=== PATIENT | male | born 1965 | race Caucasian/White ===

== ENCOUNTER 2022-12-08 15:14 | Outpatient (CLI) | payer BC, SELFPAY ==
--- NOTE | 2022-12-08 15:10 | DI.RAD_ITS ---
Exam(s) XR KNEE LT 3V AP,LAT,DAVID EXAM: XR KNEE LT 3V AP,LAT,DAVID CLINICAL HISTORY: left knee pain. TECHNIQUE: 2D digital imaging was performed of the left knee. Three images were obtained. ThreeAP, lateral and PA tunnel views were obtained. COMPARISON: No exams were available for comparison FINDINGS: BONES: No acute fracture is present. No bony destructive lesion is seen. There is a lucent defect in the articular surface of the medial femoral condyle. JOINTS: The knee is normally aligned. No joint effusion is seen. There is narrowing and periarticular spurring in the medial femoral tibial joint space. SOFT TISSUE: Normal. IMPRESSION: 1. Osteochondral defect in the medial femoral condyle. 2. Osteoarthritis of the left knee. DATA REPOSITORY: RADIATION DOSE DELIVERED:
--- NOTE | 2022-12-08 15:12 | DI.RAD_ITS ---
Exam(s) XR KNEE RT 3V AP,LAT,DAVID EXAM: XR KNEE RT 3V AP,LAT,DAVID CLINICAL HISTORY: right knee pain. TECHNIQUE: 2D digital imaging was performed of the right knee. Four views obtained. AP, lateral and PA tunnel views were obtained. COMPARISON: CR XR KNEE LT 3V AP,LAT,DAVID from 12/08/2022 FINDINGS: BONES: No acute fracture is present. No bony destructive lesion is seen. JOINTS: There is mild narrowing of the medial femoral tibial joint space. No joint effusion is seen. Chondrocalcinosis in the medial femoral tibial joint. SOFT TISSUE: Normal. IMPRESSION: Mild degenerative changes of the right knee. DATA REPOSITORY: RADIATION DOSE DELIVERED:
== END 2022-12-08 15:15 | disposition home or self-care (01) ==
LOC: DIORS 15:15
PROVIDERS: PCP Neuromusculoskeletal Medicine & OMM; Referring Provider Neuromusculoskeletal Medicine & OMM; Visit Provider Student in an Organized Health Care Education/Training Program
DX: M25.561 Pain in right knee (principal); M25.562 Pain in left knee; M17.0 Bilateral primary osteoarthritis of knee; M21.852 Other specified acquired deformities of left thigh
CPT/HCPCS: 73562

== ENCOUNTER → 2023-07-21 01:00 | Outpatient (CLI) | payer BC, SELFPAY ==
--- NOTE | 2023-07-21 07:00 | DI.MRI_ITS ---
Exam(s) MR LOWER JOINT LT WO EXAM: MR LOWER JOINT LT WO CLINICAL HISTORY: SURGICAL PLANNING FOR PARTIAL KNEE,djd lt knee, chondrocalcinosis bilat. TECHNIQUE: Multiplanar multisequence MRI was performed. COMPARISON: CR XR KNEE LT 3V AP,LAT,DAVID from 12/08/2022 CR XR KNEE RT 3V AP,LAT,DAVID from 12/08/2022 FINDINGS: BONES: Osteochondral defect of the medial femoral condyle. Flattening of the femoral condylar. Subj acent large subchondral cysts. Edema in the medial tibial plateau. JOINTS: A small joint effusion is present. Articular cartilage: Patellofemoral joint: Focal linear defect at the apex without involvement of un derlying bone. Medial femoral tibial joint: Denuding of the cartilage over the medial femoral condyle. Severe cart ilage thinning over the medial tibial plateau. Lateral femoral tibial joint: Articular cartilage is unremarkable. TENDONS: Extensor mechanism: Unremarkable. Medial retinaculum: Unremarkable. Lateral retinaculum: Unremarkable. Popliteus: Unremarkable. MUSCLES: Unremarkable. MENISCI: The medial meniscus shows severe degenerative changes, with peripheral displacement and bertha phous intrasubstance signal.. The lateral meniscus is unremarkable. There is a tiny cyst anterior t o the anterior horn of the lateral meniscus. SOFT TISSUES: Mild anterior edema. LIGAMENTS: Anterior Cruciate: Unremarkable. Posterior Cruciate: Unremarkable. Medial Collateral:Unremarkable. Lateral Collateral: Unremarkable. IMPRESSION: Large osteochondral defect of the medial femoral condyle with large subjacent cyst. Severe degenerat cole changes of the medial femoral tibial joint and medial meniscus. Small linear focus of high signal in the cartilage at the patellar apex. DATA REPOSITORY:
== END ==
PROVIDERS: PCP Neuromusculoskeletal Medicine & OMM; Visit Provider Student in an Organized Health Care Education/Training Program
DX: M11.261 Other chondrocalcinosis, right knee (principal); M11.262 Other chondrocalcinosis, left knee
CPT/HCPCS: 73721

== ENCOUNTER → 2023-10-06 11:22 | Outpatient (CLI) | payer BC, SELFPAY ==
--- NOTE | 2023-10-06 10:45 | DI.MRI_ITS ---
Exam(s) MR LOWER JOINT RT WO EXAM: MR LOWER JOINT RT WO CLINICAL HISTORY: R KNEE PAIN M23.91 DERANGEMENT RIGHT KNEE TECHNIQUE: Multiplanar multisequence MRI of the knee was performed. COMPARISON: CR,DX XR KNEE COMPLETE MIN 4V LT from 12/15/2018 MR MR KNEE LT WO CONTRAST from 12/28/2018 CR XR KNEE LT 3V AP,LAT,DAVID from 12/08/2022 CR XR KNEE RT 3V AP,LAT,DAVID from 12/08/2022 MR MR LOWER JOINT LT WO from 07/21/2023 FINDINGS: EFFUSION: A small joint effusion. No Mauricio cyst in the popliteal fossa. MARROW:There is no evidence of fracture, bone contusion, nor osteochondral defects.. There are no si gnificant osseous lesions. PATELLOFEMORAL COMPARTMENT: The quadriceps tendon is intact. The patellar ligament exhibits mild inc reased signal in its superior aspect but no significant tear. No abnormal signal in the inferior jaymie e the patella. There is mild subcutaneous edema anterior patella. There is mild uniform thinning of the retropatellar cartilage. No evidence of fissure nor significan t chondral defect. No osteochondral defect at this level.There is no intraosseous signal to suggest recent patellar dislocation. There are no patellar retinacular tears. CRUCIATE LIGAMENTS: The anterior cruciate ligament is intact.The posterior cruciate ligament is intac t. MEDIAL COMPARTMENT/MEDIAL MENISCUS: There is combination oblique and horizontal tear of the mid-later al aspect of the posterior horn medial meniscus. There is mild outward and caudal extrusion of torn meniscal material. No flipped fragments. There is a focus of increased signal in the posterior horn at the level just medial to the root of but this signal abnormality does not violate an articular galvez rface and tear signal does not extend medial to this in the posterior horn, with the meniscal root ap pearing intact. The anterior horn appears intact. There is mild relatively uniform articular cartilage thinning over the main weight-bearing surface of the medial condyle. No osteochondral defects evident. No subarticular bone edema in the medial con dyle and tibial plateau. No marginal osteophytes. MEDIAL COLLATERAL LIGAMENT: Mild increased signal at meniscocapsular junction. No high-grade tear of this structure. LATERAL COMPARTMENT/LATERAL MENISCUS: There is no evidence of lateral meniscal tear.Mild thinning of the articular cartilage over the main weight-bearing surface of the lateral femoral condyle. No larg e chondral defects nor osteochondral defects. No subarticular edema in the lateral condyle nor in th e subjacent lateral tibial plateau. No osteophytes. ILIOTIBIAL BAND: Intact LATERAL COLLATERAL LIGAMENT COMPLEX: The fibular collateral ligament is intact. The biceps femoris t endon is intact.Popliteus muscle and tendon are intact. IMPRESSION: 1. The main finding here is significant tear of the outer half of the posterior horn of the medial me niscus, as described above. There are mild cartilage degenerative changes in the medial compartment but no evidence of osteochondral defect, as was evident in the opposite knee (see prior opposite knee MRI report). No other meniscal tears evident. 2. No significant cruciate nor collateral ligament tears. 3. Small joint effusion. No Mauricio cyst. DATA REPOSITORY:
== END ==
PROVIDERS: PCP Neuromusculoskeletal Medicine & OMM; Visit Provider Student in an Organized Health Care Education/Training Program
DX: M25.561 Pain in right knee (principal); M23.8X1 Other internal derangements of right knee; M25.461 Effusion, right knee; S83.241A Other tear of medial meniscus, current injury, right knee, initial encounter
CPT/HCPCS: 73721

== ENCOUNTER 2023-10-14 13:05 | Outpatient (CLI) | payer BC, SELFPAY ==
--- NOTE | 2023-10-14 09:15 | DI.RAD_ITS ---
Exam(s) XR STANDING ALIGNMENT EXAM: XR STANDING ALIGNMENT CLINICAL HISTORY: PRE OP. TECHNIQUE: 2D digital imaging was performed. Standing AP views were performed from the pelvis throu gh the ankles. COMPARISON: CR XR KNEE LT 3V AP,LAT,DAVID from 12/08/2022 CR XR KNEE RT 3V AP,LAT,DAVID from 12/08/2022 FINDINGS: BONES: No acute fracture is present. No bony destructive lesion is seen. Leg length discrepancy: No significant overall leg length discrepancy. JOINTS: Knees: Right knee shows mild degenerative changes and chondrocalcinosis. Left knee shows 0 c hondral defect of the medial femoral condyle and moderate to severe joint space narrowing. The ankle joints are unremarkable. Hips: Mild left hip joint space narrowing. Moderate to severe narrowing of the right hip joint space SOFT TISSUE: Normal. IMPRESSION: Osteochondral defect and degenerative changes of the left knee.. No significant leg length discrepancy. DATA REPOSITORY: RADIATION DOSE DELIVERED:
== END 2023-10-14 13:06 | disposition home or self-care (01) ==
LOC: DIORS 13:06
PROVIDERS: PCP Neuromusculoskeletal Medicine & OMM; Visit Provider Student in an Organized Health Care Education/Training Program
DX: M17.12 Unilateral primary osteoarthritis, left knee (principal); M23.91 Unspecified internal derangement of right knee
CPT/HCPCS: 77073

== ENCOUNTER 2023-10-29 06:05 | Day surgery (SDC) | payer BC, SELFPAY ==
[2023-10-29] VITALS (11 sets, daily range): BP systolic 99–160; BP diastolic 65–101; PULSE 58–72; RESP 12–19; TEMP 36.2–36.7; O2SAT 94–99; BMI 34.2
[2023-10-29] MEDS: Celecoxib 200 MG CAP 400 MG PO (06:45)
[2023-10-29] MEDS: Acetaminophen 500 MG TAB 1000 MG PO ×2 (06:45→12:49)
[2023-10-29] MEDS: Lactated Ringers 1,000 ML 30 ML IV (06:46)
--- NOTE | 2023-10-29 07:06 | W.ANESPRE ---
General Info Date of Service Date Performed: 10/29/23 Height: 5 ft 6 in Weight: 96.162 kg Body Mass Index (BMI): 34.2 Surgical Procedure: Operation Date: 10/29/23 08:00 Proposed Procedure Side Surgeon p Medial Unicondylar Knee Arthroplasty Left Mick Ray MD Meds Allergies and Home Medications Allergies Allergy/AdvReac Type Severity Reaction Status Date / Time No Known Allergies Allergy Verified 10/29/23 06:54 Home Medication Medication Instructions Recorded ibuprofen 200 mg tablet 800 mg PO DAILY PRN 06/10/22 sildenafil 100 mg tablet (Viagra) 100 mg PO DAILY PRN 06/10/22 losartan 25 mg tablet 25 mg PO HS 10/14/23 Current Visit Medications: Current Medications Generic Name Dose Route Start Last Admin Trade Name Freq PRN Reason Stop Dose Admin Acetaminophen 1,000 mg 10/29/23 06:00 10/29/23 06:45 Acetaminophen 500 Mg Tab PO 10/29/23 16:00 1,000 mg PREOP ALEX Administration Celecoxib 400 mg 10/29/23 06:00 10/29/23 06:45 Celecoxib 200 Mg Cap PO 10/29/23 16:00 400 mg PREOP ALEX Administration Gabapentin 300 mg 10/29/23 06:00 Gabapentin 300 Mg Cap PO 10/29/23 16:00 PREOP ALEX Ringer's Solution 1,000 mls @ 30 mls/hr 10/29/23 06:00 10/29/23 06:46 IV 11/27/23 23:59 30 mls/hr INFUSION ALEX Administration Cefazolin Sodium/Dextrose 2 gm in 50 mls @ 100 mls/hr 10/29/23 06:00 Ancef Duplex IVPB 10/29/23 16:00 PREOP ALEX Tranexamic Acid 1,000 mg/ 60 mls @ 360 mls/hr 10/29/23 06:00 Sodium Chloride IVPB 10/29/23 16:00 PREOP ALEX IV Miscellaneous Supplies 1 each 10/29/23 06:00 Iv Access IV 11/27/23 23:59 DIRECTED ALEX Sodium Chloride 0 ml 10/29/23 06:00 Normal Saline Flush 10 Ml Syr IV 11/27/23 23:59 PRN PRN Sodium Chloride 0 ml 10/29/23 06:00 Normal Saline 10 Ml Vial IJ 11/27/23 23:59 DIRECTED PRN Sterile Water 0 ml 10/29/23 06:00 Water,Injection,Sterile 10 Ml Vial IJ 11/27/23 23:59 DIRECTED PRN PFSH Active Problems Active Problems: Problem Status Onset Code Internal derangement of right knee M23.91 Arthritis of knee, left M17.12 Left knee DJD M17.12 Degenerative joint disease of right knee M17.11 Chondrocalcinosis of both knees M11.261, M11.262 Surgical History Surgical History Status post arthroscopy of left knee Tobacco Smoking/Tobacco Use Status: Current-Occasional Tobacco Type: cigarettes Alcohol Alcohol Intake: current Alcohol intake frequency: 3 or more drinks per day Alcohol type: beer Substance Use Substance use: Never Substance use type: does not use Vital Signs and Lab Results Vital Signs Most Recent Vital Signs in EMR: Most Recent Vital Signs Temp Pulse Resp BP Pulse Ox 36.7 C 67 16 137/79 96 10/29/23 06:55 10/29/23 06:55 10/29/23 06:55 10/29/23 06:55 10/29/23 06:55 Lab Results Blood Type / Crossmatch: No Data to Display Complete Blood Count: No Data to Display Complete Metabolic Panel: No Data to Display Liver Function Panel: No Data to Display Coagulation Panel: No Data to Display Cardiac Panel: No Data to Display Arterial Blood Gas: No Data to Display Venous Blood Gas: No Data to Display Pancreas Panel: No Data to Display Thyroid Panel: No Data to Display Infectious Disease: No Data to Display Blood Cultures: No Data to Display Toxicology Panel: No Data to Display Anesthesia Assessment and Plan Anesthesia History Personal History: No History of Anesthesia Complications Family History: No Family History of Anesthesia Complications Exercise Tolerance Exercise Tolerance: Metabolic Equivalents>4 Pertinent Negatives Pertinent Negatives: No Symptoms of GERD, No Major Cardiovascular Symptoms or Complaints and No Major Pulmonary Symptoms or Complaints Cardiac & Pulmonary Exam Cardiac Exam: Normal S1/S2 Heart Sounds Pulmonary Exam: Clear Bilateral Breath Sounds Implantable Cardiac Device Does patient have a Pacemaker or an ICD?: No Airway Exam Known Difficult Airway: No Mallampati Class: 2 Mouth Opening: Normal (> 3cm) Thyromental Distance: Greater than 3 cm Neck Range of Motion: Full ROM Neck Circumference: Normal Teeth Condition: Normal Dentition ASA Classification ASA Score: ASA 2 Emergency Case?: No NPO Status NPO Status: NPO Clears >2 hours, Solids >8 hours Anesthesia Plan Resuscitation Status: Full Code Anesthesia Technique: General Anesthesia Airway Planned: Endotracheal Tube Pain Management: Surgeon and patient request nerve block Monitors Used: Standard Monitors
--- NOTE | 2023-10-29 07:10 | W.PM.DSUDISC ---
Date of service: 10/29/23 Time of Service: 12:00 Discharge Plan Disposition Patient Disposition: Home Condition: Stable Discharge Details Attending Provider: Mick Ray Primary Care Provider: Tommy Porter Home Meds and New Rx's Prescriptions: New aspirin 81 mg tablet,delayed release (DR/EC) 81 mg PO BID 30 Days Qty: 60 0RF naproxen 250 mg tablet 250 - 500 mg PO BID PRNQty: 40 0RF Rx Instructions: take with a meal Continued sildenafil [Viagra] 100 mg tablet 100 mg PO DAILY PRN Rx Instructions: administer 30 minutes to 4 hours before activity losartan 25 mg tablet 25 mg PO HS Discontinued ibuprofen 200 mg tablet 800 mg PO DAILY PRN Discharge Instructions Additional Instructions: Surgery: Left medial unicondylar knee replacement Activity: Weightbearing as tolerated. Recommend elevation to minimize swelling and discomfort. Walk as comfort allows. May use crutches as needed for a few weeks. It is important to restore full knee extension as soon as possible. Gently increase knee flexion over the next few weeks. Do not rest with pillows behind knee to prevent knee from getting stuck bent. Encourage ankle pumps and wiggling toes to increase circulation. A physical therapy prescription will be sent electronically to begin in 2-3 weeks. Prescriptions: Aspirin 81 mg take 1 twice a day to prevent a blood clot 30 days Naproxen 250 mg take 1-2 every 12 hours with a meal as needed for moderate to severe pain Plan to avoid narcotics given severe sleep apnea You may use [id number] Tylenol (acetaminophen) as needed for mild pain. Also, recommend Colace (docusate) as a stool softener as surgery and pain medicine cause constipation. You may try sgyz-feq-dihgohw diphenhydramine (Benadryl) 25-50 mg nightly as a sleep aid Dressings: Leave Band-Aid in place until follow-up. Keep clean and dry at all times. May remove Corey wrap tomorrow. May re-wrap with Corey wrap to help control swelling as needed. Follow-up: 10-[address] Ray You may take off the leg compression Corey wrap and stockings tomorrow at home. You may also leave them on a few days longer if you have a history of leg swelling or edema. Let us know right away if you develop any redness, drainage, fevers, chest pain, or trouble breathing. Do not drink alcohol or drive for at least 24 hours after anesthesia. Please call the office during business hours with any questions or concerns. Discharge Orders Discharge Orders: Discharge Order (Routine); Ordered 10/29/23 Ordered By: Mick Ray DS: Diagnosis Discharge Diagnosis (1) Arthritis of knee, left: Status: Acute
--- NOTE | 2023-10-29 07:13 | ROE_ITS ---
Date of service: 10/29/23 Time of Service: 07:30 Operative Note Operative Note DATE OF PROCEDURE: 10/29/23 PRE-OP DIAGNOSIS: Left knee medial compartmental arthritis POST-OP DIAGNOSIS: same PROCEDURE: Left knee medial unicompartmental arthroplasty, CPT # 58715 The bankruptcy assistant was medically required as this procedure involves retraction, protection of neurovascular structures, and manipulation of multiple instruments and implants at the same time, which cannot be done without a skilled bankruptcy assistant. SURGEON: Mick Ray CALL CENTER SUPPORT REPRESENTATIVE: Dimitris Rojas ANESTHESIA TYPE: Local By Surgeon, General LMA/ETT and Primary Nerve Block Refer to Anesthesia Record ESTIMATED BLOOD LOSS: 75 TOURNIQUET TIME: 0 COMPLICATIONS: None Patient was transported to: PACU Patient's condition: stable Implants: De[employer] Sigma HP partial knee size 4 metal-backed tibial tray, 8 mm tibial insert fixed bearing, size 4 femoral component Indications: Please see complete medical record for details. Findings: Isolated medial compartment arthritis Procedure Description: The patient was taken to the operating room and transferred to the operating room table. General anesthesia was induced. All bony prominences were well- padded. Preoperative antibiotics and 1 g TXA were administered. A tourniquet was placed loosely over padding high on the patient's thigh. The knee and lower extremity were prepped and draped in the usual sterile fashion. The correct patient, procedure, and side of the procedure were all verified prior to incision. A slightly medial of midline longitudinal approach was used to the knee extending from the superior pole the patella to the distal aspect of the tibial tubercle. The quadriceps tendon, patella borders, and patellar tendon were exposed. A full-thickness arthrotomy was performed starting splitting the quadriceps tendon and leaving a sleeve of tissue on the medial aspect of the patella and taking care to progress along the medial margin the patellar tendon. The MCL was elevated off the proximal medial tibia. The tibial alignment jig was set in place on the anterior medial aspect of the tibia and carefully adjusted to achieve proper alignment in the coronal and sagittal planes. Reciprocating saw was used to create the vertical cut at the medial aspect of the medial tibial eminence taking care to protect the ACL ligament footprint. The transverse cut was then done using the microsagittal saw through the jig taking care to retract and protect the MCL. The saw was able to cut the most posterior aspect of the tibia given hard cortical rim of b one, this was completed with osteotome and slightly chipping the posterior rim. The 7 mm spacer block was inserted and found to be slightly tight in extension and even more tight in flexion. The jig was replaced, translated 2mm distally using the screw holes, and the transverse cut done again. The bone piece and cut were inspected and found to be appropriate for patient anatomy. A box rasp was used to clean up the cut especially the L component. The 7 mm spacer block was inserted and found to have good equal stability in full extension and 90 degrees of flexion with approximately 2 mm of joint space opening in 20-30 degrees of flexion. With the knee in extension, the tibial trial spacer block was used to tammy the rotational alignment and anterior extent of the femoral component. The spacer block was removed and the tibia was sized with the depth gauge. The distal femoral cutting block was inserted taking care to orient it appropriately. The cut was done using the saw through the guide. The osteochondral deformity distal femur was between the distal and posterior margins, there was a large posterior femoral condyle. The lesion was centered about the chamfer cut area. The posterior cutting block was applied to the distal femur taking care to ensure it was flush with the resected distal femur surface and appropriately rotated to match alignment of the tibia through f lexion and extension. The distal cut was increased by 1 mm as they Seem slightly tight compared to extension. This cut was done, guide removed, and the femur was sized with the femoral sizing blocks. The appropriate sized cutting jig was selected. Care was taken to ensure the block was flush with the resected distal and posterior bone surfaces. A curved gouge was used to cut the profile of the proximal tip of the femoral prosthesis, tammy the extent of the anterior chamfer cut, and prevent trochlear cartilage delamination. The the anterior cut was done using the osteotomes, the drill was used to drill the 2 peg holes, and the posterior chamfer cut was done through the jig . The cutting block and bone cuts were removed. The chamfer cut was about 1 mm short of the maximum depth of the bone lesion. The underlying bone was smooth and firm. It was slightly abraded with the tip of a threaded pin. The medial meniscus remnant was removed. The femoral component trial was placed on the distal femur and the 7-8 mm spacer blocks showed appropriate balancing in flexion, extension, and again 2 mm of medial joint space opening in 20-30 degrees of flexion. Tibial template was inserted and the size confirmed to be appropriate. The keel was used by hand to remove bone from the slot and the tibial peg drill was used in the peg hole. The pulse lavage was used to clean the bone surfaces. SmartSet medium viscosity cement was prepared. At the appropriate time during the early working phase, the cement was applied to the backside of the tibial and femoral components. Then, cement was carefully placed and pressurized into the proximal tibia taking care to only have minimal cement posteriorly. The tibial component was inserted at an angle and then impacted directing pressure from posterior to anterior to keep the flow of cement from posterior to anterior. Cement was then applied to the distal femur and the femoral component impacted. Excess cement was removed. The knee was brought into full extension and this position with axial load was maintained until the cement was completely hardened at 20 minutes A combination R.E.C.K. (123 mg Ropivacaine, 0.25 mg Epinephrine, 0.04 mg Clonidine, and 15 mg Ketorolac) 50 ml injection was widely infiltrated about the knee. The wound was copiously irrigated with the pulse lavage and Irrisept. Tibial tray newspaper inserter was removed, the 8 mm trial was selected due to young age, high activity level and increased ability without preventing full range of motion. The final tibial insert was inserted and clicked into place. The knee was tested through range of motion found to be stable with nearly equal balancing from full extension to slight increased laxity in flexion past 90 degrees and a couple millimeters of medial joint space opening in 20-30 degrees of flexion. Appropriate hemostasis was achieved. The capsule was approximated using #1 Vicryl in a figure-of-8 interrupted fashion and then closed using Stratafix #1 PDS barbed suture in a running fashion. The superficial layers were irrigated. Subcutaneous tissue was closed using 2-0 Monocryl in a buried interrupted fashion. Skin was closed using 3-0 Monocryl in a buried subcuticular fashion. The skin incision was glued and then covered with a Mepilex Ag dressing. An Corey wrap was applied from the foot up to the thigh. The patient awoke from anesthesia without complication was transferred to the recovery room in stable condition.
[2023-10-29] MEDS: ceFAZolin 2 GM/50 ML BAG IVPB (07:55)
[2023-10-29] MEDS: EPINEPHrine 1 MG/ML AMP pres-free (08:23)
--- NOTE | 2023-10-29 08:23 | W.ANESNERVE ---
Nerve Block Single Injection Procedure Date and Time Date Performed: 10/29/23 Procedure Start: 07:14 Location Where Procedure Performed Procedure Location: Day Surgery Unit Reason Performed: Postoperative Analgesia Requesting Provider: Mick Ray Timeout Performed Timeout Performed: Yes Monitoring Used ECG, Blood Pressure, SpO2 and See EMR for corresponding vital signs Sterility Sterility: Hand Hygiene, Surgical Cap, Surgical Mask and Sterile Gloves Sedation Given During Procedure Sedation Given (Indicate Dose Given): Versed IV Dose:: 2mg Patient Mental Status Patient Mental Status: Sedate with meaningful communication Nerve Block 1st Nerve Block: Laterality: Left Block Type: Adductor Canal Ultrasound Image Saved?: Yes Needle / Catheter Used: 100mm SonoPlex II Local Anesthetic Bolus (Indicate Dose Given): Lidocaine used for local infiltration of skin, Injected in 3-5ml increments after negative blood aspiration, Bupivacaine 0.25% Dose:: 15mL and Exparel Dose:: 10mL Additives (Indicate Dose Given): None Ultrasound: Sterile probe cover and gel used Nerve Stimulator: Not Used Paresthesia: None Procedure Tolerated: No Complications and Patient tolerated well Procedure Outcome: Successful Performed By: Rosalba Regan
[2023-10-29] MEDS: Bupivacaine 0.25% Pres-Free 30 ML VIAL (08:24)
--- NOTE | 2023-10-29 11:00 | DI.RAD_ITS ---
Exam(s) XR KNEE LT 2V AP,LAT EXAM: XR KNEE LT 2V AP,LAT CLINICAL HISTORY: Left knee arthritis. TECHNIQUE: 2D digital imaging was performed. Two images were obtained. AP and lateral views were ob tained. COMPARISON: CR XR KNEE LT 3V AP,LAT,DAVID from 12/08/2022 CR XR STANDING ALIGNMENT from 10/14/2023 FINDINGS: The patient is now status post left partial knee replacement. The orthopedic hardware appears in goo d position. Postsurgical changes are seen in the soft tissues. There is chondrocalcinosis in the la teral femoral tibial joint. The bones are intact and normally mineralized. IMPRESSION: Left partial knee replacement. DATA REPOSITORY: RADIATION DOSE DELIVERED:
[2023-10-29] MEDS: HYDROmorphone 2 MG/ML SYR IVP ×3 (11:53→12:13)
[2023-10-29] MEDS: Normal Saline 10 ML VIAL IJ (11:53)
[2023-10-29] MEDS: oxyCODONE 5 MG TAB PO (12:49)
--- NOTE | 2023-10-29 14:10 | PT.INIE ---
PT Notes Physical Therapy Day Surgery Initial Evaluation Date: 10/29/2023 Referring Doctor: Mick Ray MD PT Orders: PT CONSULT: S/P Ortho Surgery Precautions: WBAT L LE-post op knee exercises (extension, quad sets). Limit L knee flexion to 90 degrees until follow up ortho appointment. Patient Profile/Admitting Diagnosis: Yahaira is a 58-year-old male with left knee medial compartmental arthritis and is status post left medial knee unicompartmental arthroplasty on postoperative day 0. PMHX: All Active Problems (Updated 09/30/23 @ 08:38 by Mick Ray MD) Internal derangement of right knee (Acute) Arthritis of knee, left (Acute) Left knee DJD (Acute) Depo-Medrol injection: 12/08/22 Degenerative joint disease of right knee (Acute) Depo-Medrol injection: 12/08/2022 PCP 40 mg Kenalog - 05/15/22 Chondrocalcinosis of both knees (Acute) Surgical History (Updated 12/08/22 @ 18:10 by Yudelka Dumont) Status post arthroscopy of left knee Social History/Home Situation: Lives with Darya. 4 steps to enter with 1 rail but will have support on the other side from wifeif needed. Independent with all aspects of ADLs prior to surgery. Works as a contractor. Equipment Owned/DME: None Subjective: Minimal pain in the L knee at rest, subsided with walking. Complained of woosiness that worsened after completing steps. BP increased to 160/88 mmHg. Nurse Laura aware. Objective: General Observation: Resting in bed. CONNIE wraps to L LE. Mepilex Ag over surgicl incision. Mental Status: A and O x 4 Pain: As above ROM: Right Lower Extremity: Hip flexion WFL. Hip abduction WFL. Knee flexion WFL. Ankle dorsiflexion WFL. Ankle plantarflexion WFL. Left Lower Extremity: Hip flexion WFL. Hip abduction WFL. Knee flexion 0-90 degrees. Ankle dorsiflexion WFL. Ankle plantarflexion WFL. Strength: Right Lower Extremity: Hip flexors 5/5. Hip abductors 5/5. Knee flexors 5/5. Knee extensors 5/5. Ankle dorsiflexors 5/5. Ankle plantarflexors 5/5. Left Lower Extremity:Hip flexors 4/5. Hip abductors 4/5. Knee flexors 3-/5. Knee extensors 4-/5. Ankle dorsiflexors 5/5. Ankle plantarflexors 5/5. Sensation: Intact as to pain and light pressure in BLE Bed Mobility/Transfers: Minimal cueing provided for use of B hands as needed for support, movement sequence, Ad management, and and posture to reduce fall risk and minimize pain report Supine to sit stand by assist Sit to stand contact guard assist Stand to sit stand by assist Bed to chair stand by assist Gait: Facilitated safe and correct performance of level surface ambulation covering a distance of 150 feet using front wheeled walker requiring only standby assist with minimal verbal cueing provided for AD management, posture, and safe for limb advancement to reduce fall risk and minimize pain report. Stairs: Guided patient with safe and correct performance of 3 x 4 inch steps and 2 x 6 inch steps while holding onto bilateral rails with step to gait pattern requiring only standby assist and minimal verbal cueing for correct movement sequence, posture, and hand placement to minimize fall risk and reduce pain. Balance: Static Sitting: Normal Dynamic Sitting: Normal Static Standing: Fair Dynamic Standing: Fair Special Tests: Mobility Limitations Standardized Measure [facility] AM-PAC 6 clicks Basic Mobility Inpatient Short Form: Raw Score: 23 CMS Score: 11% deficit Informed Consent/Education: Patient instructed in purpose of PT consult. Packet containing post-op exercise protocol has been given to patient. Education and training on initial set of exercises that can be done at home have been completed with patient. Trained patient with correct performance of exercises below to maximize motor control, joint flexibility, soft tissue extensibility of the L knee musculature: Access Code: [email or web address] URL: [email or web address] Date: 10/29/2023 Prepared by: Kayla Malone Exercises - Supine Quad Set - 1 x daily - 7 x weekly - 1 sets - 10 reps - 5 hold - Supine Heel Slide - 1 x daily - 7 x weekly - 1 sets - 10 reps - 5 hold - Supine Ankle Pumps - 1 x daily - 7 x weekly - 1 sets - 10 reps - 5 hold - Small Range Straight Leg Raise - 1 x daily - 7 x weekly - 1 sets - 10 reps - 5 hold - Seated March - 1 x daily - 7 x weekly - 1 sets - 10 reps - 5 hold Assessment: Patient requires the use of a front wheeled walker for all mobility ADL performance to minimize pain report, maximize stability of walking, and reduce fall risk. Patient presents with clinical signs and symptoms consistent with current/admitting diagnoses that have resulted to mobility limitations, gait instability, generalized weakness, and impairment of motor control as demonstrated by the following impairment level findings: 1. Decreased strength to left knee major muscle groups 2. Impaired standing balance 3. Limitation of joint range of motion in left knee flexion (per movement precaution by MD) Impairments are contributing to the following functional limitations: 1. Inability to safely ambulate without assistive device 2. Increase completion time for mobility ADL performance 3. Increased fall risk Patient is assessed as a 36409 moderate complexity based on the following: History: 58-year-old male with impairment level findings, functional limitations, and past medical history as indicated above Examination: Demonstrable impairment in strength, balance, and mobility level with underlying impairments and functional limitations as documented above Presentation: Evolving Decision Makin moderate complexity. Goals: N/A. PT evaluation and 1-2 treatment sessions only for functional mobility training using recommended AD and for HEP instruction. Plan of Care/Treatment Plan: N/A. PT evaluation and 1-2 treatment session only for functional mobility training using recommended AD and for HEP instruction. DISCHARGE RECOMMENDATIONS: Home when medically cleared by orthopedic surgeon. Recommend outpatient PT services in order to optimize functional mobility outcomes and facilitate return to independent community ambulation without an assistive device. TREATMENT CODE/TIME: 18007 x 20 minutes for 1 unit, 99749 x 29 minutes for 2 units beginning at 13:15 PM. Thank you for the opportunity to participate in the care of this patient. Kayla Malone PT, DPT, CLT [facility] [place], [place]
--- NOTE | 2023-10-29 14:48 | W.ANESPOSTOP ---
Postoperative Evaluation Date, Time and Location Date Performed: 10/29/23 Time Performed: 14:48 Patient Location: Day Surgery Unit Vital Signs Most Recent Imported Vital Signs: Most Recent Vital Signs Temp Pulse Resp BP Pulse Ox 36.2 C L 72 16 160/88 H 97 10/29/23 12:53 10/29/23 13:59 10/29/23 13:59 10/29/23 13:59 10/29/23 13:59 Pain Score Most Recent Pain Score: Most Recent Pain Score Pain Level 5 10/29/23 12:53 Assessment Mental Status: Awake (Alert & Oriented to Patient Baseline) Airway and Respiratory Function: Patent airway with normal (patient baseline) respiratory exam Cardiovascular Function: Hemodynamically Stable Hydration Status: Adequately Hydrated Nausea & Vomiting: No Nausea or Vomiting Pain: Pt. Denies Any Pain Peripheral Nerve Block: Regional nerve block not resolved at time of post operative discharge
== END 2023-10-29 14:50 | disposition home or self-care (01) ==
PROVIDERS: PCP Neuromusculoskeletal Medicine & OMM; Visit Provider Student in an Organized Health Care Education/Training Program
PROC: (CPT 27446; principal; 2023-10-29 07:30)
DX: M17.12 Unilateral primary osteoarthritis, left knee (principal)
CPT/HCPCS: 27446; 76942; 97162; 97530; 73560; J0171; J0690; J1100; J1170; J2001; J2250; J2371; J2405; J2704

== ENCOUNTER 2023-11-11 10:43 | Outpatient (CLI) | payer BC, SELFPAY ==
--- NOTE | 2023-11-11 08:00 | DI.RAD_ITS ---
Exam(s) XR KNEE LT 2V AP,LAT EXAM: XR KNEE LT 2V AP,LAT INDICATION: 1st post op s/p Uni knee. COMPARISON: CR XR KNEE LT 2V AP,LAT from 10/29/2023 TECHNIQUE: 2D digital imaging was performed. Two views. FINDINGS: There has been no change in the alignment of the medial femoral tibial joint space prosthesis given d ifferences in projection. Some anterior soft tissue swelling remains present. DATA REPOSITORY: RADIATION DOSE DELIVERED:
== END 2023-11-11 10:44 | disposition home or self-care (01) ==
PROVIDERS: PCP Neuromusculoskeletal Medicine & OMM; Visit Provider Student in an Organized Health Care Education/Training Program
DX: Z96.652 Presence of left artificial knee joint (principal); Z47.1 Aftercare following joint replacement surgery
CPT/HCPCS: 73560

== ENCOUNTER 2023-12-09 11:53 | Outpatient (CLI) | payer BC, SELFPAY ==
--- NOTE | 2023-12-09 08:15 | DI.RAD_ITS ---
Exam(s) XR KNEE LT 2V AP,LAT EXAM: XR KNEE LT 2V AP,LAT CLINICAL HISTORY: F/U LEFT UKA. TECHNIQUE: 2D digital imaging was performed. Two images were obtained. AP and lateral views were ob tained. COMPARISON: CR XR KNEE LT 2V AP,LAT from 10/29/2023 CR XR KNEE LT 2V AP,LAT from 11/11/2023 FINDINGS: BONES: There are stable post operative changes of a there again seen findings of a partial left knee replacement present. No fracture or dislocation. JOINTS: The orthopedic hardware is in good position. No evidence of hardware loosening. There is a small joint effusion. SOFT TISSUE: There is soft tissue swelling anteriorly. IMPRESSION: 1. Postsurgical changes of partial left knee replacement. 2. Small joint effusion and soft tissue swelling anteriorly. DATA REPOSITORY: RADIATION DOSE DELIVERED:
== END 2023-12-09 11:54 | disposition home or self-care (01) ==
LOC: DIORS 11:53
PROVIDERS: PCP Neuromusculoskeletal Medicine & OMM; Visit Provider Student in an Organized Health Care Education/Training Program
DX: Z96.652 Presence of left artificial knee joint (principal); M25.462 Effusion, left knee
CPT/HCPCS: 73560

== ENCOUNTER 2024-01-05 11:32 | Outpatient (CLI) | payer BC, SELFPAY ==
--- NOTE | 2024-01-05 08:00 | DI.RAD_ITS ---
Exam(s) XR SHOULDER RT COMPLETE 2+V EXAM: XR SHOULDER RT COMPLETE 2+V CLINICAL HISTORY: RIGHT SHOULDER PAIN. TECHNIQUE: 2D digital imaging was performed of the right shoulder. Two images were obtained. Axill julianna and Grashey views were obtained. COMPARISON: No exams were available for comparison FINDINGS: BONES: No acute fracture is present. No bony destructive lesion is seen. JOINTS: No dislocation present. There are marked degenerative changes seen at both the glenohumeral a nd acromioclavicular joints characterized by joint space and osteophytes. SOFT TISSUE: Normal. IMPRESSION: Marked degenerative changes of the right shoulder. DATA REPOSITORY: RADIATION DOSE DELIVERED:
== END 2024-01-05 11:33 | disposition home or self-care (01) ==
LOC: DIORS 11:32
PROVIDERS: PCP Neuromusculoskeletal Medicine & OMM; Visit Provider Student in an Organized Health Care Education/Training Program
DX: M25.511 Pain in right shoulder (principal)
CPT/HCPCS: 73030

== ENCOUNTER → 2024-02-25 02:19 | Outpatient (CLI) | payer BC, SELFPAY ==
--- NOTE | 2024-02-25 15:52 | DI.RAD_ITS ---
Exam(s) RF JOINT INJ. FLUORO GUID RAD EXAM: RF JOINT INJ. FLUORO GUID RAD CLINICAL HISTORY: R SHOULDER PAIN,fluoro guided injection,arthritis rt gh joint,m19.011. The Patien t has had persistent right shoulder pain. Noninvasive measures have been tried. To serve as both di agnostic and therapeutic, an injection under fluoroscopy was recommended. The risks of the procedure were discussed with their Orthopedic provider and the patient elected to proceed. TECHNIQUE: 2D and realtime digital imaging was performed. CONTRAST MATERIAL: Water soluble contrast was utilized. COMPARISON: No exams were available for comparison FINDINGS: The Patient was greeted in the fluoroscopy room. The correct side was identified and the consent was reviewed with the patient and was signed. The patient was properly positioned on the fluoroscopy ta ble. The right shoulderwas then prepped with Chloraprep and draped. The right shoulder injection st arting point was identified by the bony landmarks and fluoroscopy. The skin and soft tissue in the t ract of the injection was anesthetized with 1% Lidocaine. A spinal needle was then inserted into the right shoulder joint at the level of the glenohumeral joint under fluoroscopic guidance. A small am ount of Omnipaque solution was injected to confirm intraarticular placement. Once confirmed, the gle nohumeral joint was injected with 5cc of a solution containing 0.5% Bupivaine and 80 mg of Depo-Medro l. A bandaid was placed on the injection site. The patient tolerated the procedure well and left e department in good condition. IMPRESSION: Successful right shoulder injection. RADIATION DOSE DELIVERED: Micheler=4.12 mGy
[2024-02-25] MEDS: Normal Saline - Diluent 50 ML VIAL 10 ML IJ (15:54)
[2024-02-25] MEDS: Omnipaque 300 MG/ML 10 ML BTL 5 ML IJ (15:54)
[2024-02-25] MEDS: Bupivacaine 0.5% Pres-Free 10 ML VIAL IJ (15:55)
[2024-02-25] MEDS: methylPREDNISolone ACETATE 80 MG/ML VIAL IM (15:56)
== END ==
PROVIDERS: PCP Neuromusculoskeletal Medicine & OMM; Visit Provider Student in an Organized Health Care Education/Training Program
DX: M19.011 Primary osteoarthritis, right shoulder (principal); M25.511 Pain in right shoulder
CPT/HCPCS: 20610; 77002; J0665; J1010

== ENCOUNTER 2024-04-20 14:50 | Outpatient (CLI) | payer BC, SELFPAY ==
--- NOTE | 2024-04-20 08:30 | DI.RAD_ITS ---
Exam(s) XR KNEE LT 2V AP,LAT EXAM: XR KNEE LT 2V AP,LAT CLINICAL HISTORY: F/U LEFT UKA. TECHNIQUE: 2D digital imaging was performed. COMPARISON: CR XR KNEE LT 2V AP,LAT from 12/09/2023 FINDINGS: Two views. There is stable position alignment of the components of the medial hemiarthroplasty. No fracture or loosening evident. No evidence of osteomyelitis. There is persistent soft tissue swelling anterior to the patella and patellar ligament. This was also evident on 12/09/2023 IMPRESSION: Stable satisfactory appearance of medial hemiarthroplasty. Persistent anterior soft tissue subcutaneous swelling. DATA REPOSITORY: RADIATION DOSE DELIVERED:
== END 2024-04-20 14:51 | disposition home or self-care (01) ==
LOC: DIORS 14:51
PROVIDERS: Visit Provider Student in an Organized Health Care Education/Training Program
DX: Z96.652 Presence of left artificial knee joint (principal); Z47.1 Aftercare following joint replacement surgery
CPT/HCPCS: 73560

== ENCOUNTER 2025-10-18 12:11 | Outpatient (CLI) | payer OTHER, SELFPAY ==
--- NOTE | 2025-10-18 09:06 | DI.RAD_ITS ---
Exam(s) XR HIP RT COMPLETE AP PELVIS EXAM: XR HIP RT COMPLETE AP PELVIS CLINICAL HISTORY: RIGHT HIP PAIN. TECHNIQUE: 2D digital imaging was performed. Three views. COMPARISON: No exams were available for comparison FINDINGS: BONES: No acute fracture is present. No bony destructive lesion is seen. JOINTS: There is severe narrowing of the right hip joint space, with a [id number] appearance. There is subchondral cysts on both sides of the joint as well as articular spurring. There is mild moderate narrowing of the superior left hip joint space. There is spurring at the superior acetabulum. No dislocation present. SI joints and pubic symphysis are unremarkable. SOFT TISSUE: Normal. IMPRESSION: Severe degenerative changes of [id number] degenerative changes of the left hip. DATA REPOSITORY: RADIATION DOSE DELIVERED:
== END 2025-10-18 12:12 | disposition home or self-care (01) ==
LOC: DIORS 12:11
PROVIDERS: Visit Provider Physician Assistant
DX: M16.12 Unilateral primary osteoarthritis, left hip (principal)
CPT/HCPCS: 73502